=== PATIENT | female | born 1945 | race Caucasian/White ===

== ENCOUNTER → 2017-03-18 | Outpatient (CLI) | payer SELFPAY ==
--- NOTE | 2017-03-18 16:52 | RAD ---
Chest, 2 views, 03/18/2017: History: Right-sided lipoma Comparison is made to a study from 11/04/2015. The heart size and pulmonary vascularity are normal. There is a granulomatous calcification the right chest. No acute infiltrates are seen. The hemidiaphragms are flattened compatible with hyperexpansion. There is no evidence of pleural fluid. IMPRESSION: No acute cardiopulmonary abnormality is detected.
== END | disposition home or self-care (01) ==
LOC: DXRADRC 15:38
PROVIDERS: ATTEND Physician Assistant Medical
DX: D17.79 Benign lipomatous neoplasm of other sites (principal)
CPT/HCPCS: 71020

== ENCOUNTER → 2017-03-22 | Outpatient (CLI) | payer MEDICARE, OTHER ==
--- NOTE | 2017-03-22 15:56 | RAD ---
Indication soft tissue lump. Targeted ultrasound of the right lateral chest wall between the axilla and iliac crest was performed. There is an echogenic mass compatible with a lipoma measuring approximately 5.3 x 7.6 x 1.3 cm. If additional imaging evaluation is warranted MRI or CT could be performed. IMPRESSION: Mass right lateral chest wall most compatible with a lipoma
== END | disposition home or self-care (01) ==
LOC: US 13:47
PROVIDERS: ATTEND Physician Assistant Medical
DX: D17.79 Benign lipomatous neoplasm of other sites (principal)
CPT/HCPCS: 76604

== ENCOUNTER → 2017-04-26 | Outpatient (CLI) | payer MEDICARE, OTHER ==
--- NOTE | 2017-04-26 14:23 | RAD ---
CT of the neck without contrast, 04/26/2017: History: Neck fullness, feeling of choking Noncontrast scans were obtained as requested. The laryngeal region is unremarkable. The thyroid gland shows no abnormality. The parotid and submandibular glands are unremarkable. There is no airway narrowing. Several small cervical lymph nodes are seen without evidence of pathologic enlargement. Artifacts arising from dental fillings degrade image quality at the level of the mouth. There are mild scattered degenerative changes in the cervical spine. IMPRESSION: No significant abnormality is detected. PQRS Compliance Statement: One or more of the following individualized dose reduction techniques were utilized for this examination: 1. Automated exposure control 2. Adjustment of the mA and/or kV according to patient size 3. Use of iterative reconstruction technique
== END | disposition home or self-care (01) ==
LOC: CT 13:47
PROVIDERS: ATTEND Physician Assistant Medical
DX: M47.892 Other spondylosis, cervical region (principal); R22.1 Localized swelling, mass and lump, neck
CPT/HCPCS: 70490

== ENCOUNTER → 2017-05-31 | Outpatient (CLI) | payer MEDICARE, OTHER ==
[~2017-05-31] VITALS: Ht 165.1 cm; Wt 62.1 kg
[~2017-05-31] MED LIST: SINCALIDE 1.24 MCG in IV NORMAL SALINE 50ML 30 ML IV ONE
--- NOTE | 2017-05-31 11:05 | RAD ---
Right upper quadrant ultrasound 05/31/2017 Indication: Epigastric pain Comparison study: None Findings: Visualized portions of the pancreas is grossly unremarkable. Visualized gallbladder is within normal limits without evidence of wall thickening, stones, or sludge. No pericholecystic fluid is seen. Liver parenchyma appears grossly unremarkable in appearance and echotexture. Portal vein is patent. Right kidney is normal appearance measuring 10.5 cm in length. The common bile duct is visualized measuring 2 mm in diameter. No intrahepatic biliary dilatation is seen. Impression: Normal sonographic appearance of the right upper quadrant
--- NOTE | 2017-05-31 12:36 | RAD ---
Hepatobiliary scan 05/31/2017 Indication: Diffuse abdominal pain x6 weeks. Recently diagnosed with gastritis per EGD. Comparison study: Abdominal ultrasound, earlier today Discussion: Imaging over the abdomen was performed following the administration of 5.5 mCi of technetium 99m labeled Choletec. Following visualization of the gallbladder 1.24 mcg of Kinevac was administered intravenously and gallbladder ejection fraction was measured. There is normal uptake and excretion of radiotracer from the liver. The gallbladder is initially visualized at approximately 10 minutes. Normal excretion of radiotracer into the bowel is seen. There appears to be a small amount of reflux of radiotracer into the gastric lumen. This is of uncertain clinical significance. Gallbladder ejection fraction is within normal limits at 75.7% (normal is 35 or greater). Impression: 1. No evidence of cholecystitis 2. Normal gallbladder ejection fraction 3. Small amount of what appears to be reflux of radiotracer into the stomach. This is of uncertain clinical significance.
== END | disposition home or self-care (01) ==
LOC: US 08:47
PROVIDERS: ATTEND Internal Medicine Gastroenterology
DX: K29.70 Gastritis, unspecified, without bleeding (principal); R10.13 Epigastric pain; R10.84 Generalized abdominal pain
CPT/HCPCS: 76705; 78226; 96374; 96375; A9537; J2805